=== PATIENT | male | born 1960 | race Caucasian/White ===

== ENCOUNTER 2018-11-19 17:47 | Emergency (ER) | payer SELFPAY ==
[~2018-11-19] VITALS: Ht 172.7 cm; Wt 83.9 kg
[2018-11-19 17:56] VITALS: Ht 172.7 cm; Wt 83.9 kg
[2018-11-19 18:52] VITALS: BP 127/73
== END 2018-11-19 18:52 | disposition home or self-care (01) ==
LOC: ED 17:47
DX: Z76.0 Encounter for issue of repeat prescription (principal); G40.309 Generalized idiopathic epilepsy and epileptic syndromes, not intractable, without status epilepticus